=== PATIENT | male | born 1980 | race Two or more races ===

== ENCOUNTER 2017-03-01 11:15 | Day surgery (SDC) | payer OTHER ==
[~2017-03-01 11:15] MED LIST: Buffered Lidocaine 1% SYR 3ML* 3 ML/SYR SYRINGE INTRADERM ONE; Famotidine IV* 10 MG/ML 2 ML (20 mg) IV ONE
[2017-03-01] MEDS ORDERED: Midazolam* 1 MG/ML 5 ML VIAL (5 MG) ONE ×2 (11:22→13:00)
[2017-03-01] MEDS ORDERED: ceFAZolin 2 GM PREMIX(*) 2 GM/50 ML BAG IVPB ONE (11:32)
[2017-03-01] MEDS ORDERED: Famotidine IV* 10 MG/ML 2 ML (20 mg) ONE (11:32)
[2017-03-01] MEDS ORDERED: Ketorolac INJ* 30 MG/ML 1 ML VIAL ONE ×2 (11:43→13:00)
[2017-03-01] MEDS ORDERED: Ondansetron INJ* 2 MG/ML VIAL ONE ×2 (11:43→13:00)
[2017-03-01] MEDS ORDERED: Propofol* 10 MG/ML 20 ML BTL IV PUSH ONE ×2 (11:43→13:00)
[2017-03-01] MEDS ORDERED: Lidocaine 2% PF * 5 ML VIAL ONE ×2 (11:43→13:00)
[2017-03-01] MEDS ORDERED: Lidocaine 2% PF* 10 ML AMP ONE (12:29)
[2017-03-01] MEDS ORDERED: Bupivacaine 0.5% SDV PF* 30 ML VIAL ONE (12:29)
[2017-03-01] MEDS ORDERED: KETAMINE HCL* 50 MG/ML 10 ML VIAL ONE (13:00)
[2017-03-01] MEDS ORDERED: Dexamethasone IV* 4 MG/ML 1 ML (4 MG) ONE (13:00)
[2017-03-01] MEDS ORDERED: HYDROmorphone* 1 MG/ML 1 ML SYR ONE (13:42)
[2017-03-01] MEDS ORDERED: fentaNYL* 50 MCG/ML 2 ML VIAL (100 MCG VIAL) ONE ×2 (13:43→16:04)
[2017-03-01] MEDS ORDERED: Meperidine SYRINGE* 50 MG/ML ONE (13:43)
[2017-03-01] MEDS ORDERED: Acetaminophen IV 1GM/100ML * 100 ML ONE (14:08)
[2017-03-01] MEDS ORDERED: Acetaminophen IV 1GM/100ML * 100 ML IVPB ONE (14:09)
[2017-03-01] MEDS ORDERED: Ondansetron INJ* 2 MG/ML VIAL IV PRN (14:09)
[2017-03-01 16:29] VITALS: BP 128/93
--- NOTE | 2017-03-02 01:57 | OP ---
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 OPERATIVE PROCEDURE: Removal of bone spurs anterior aspect of the ankle joint. DESCRIPTION OF PROCEDURE: The patient was taken to the operating room where longitudinal incision was made dorsal medial ankle. We raised a full-thickness flap all the way over to the lateral fibula, thus allowing full visualization of the dorsal talus, tibia, and navicular. There was no significant spurring of the anterior aspect of the tibia, but there was over the dorsum and talus and the navicular. We also shelled out significant amount of synovitis and adherent capsule from inside the ankle joint, in other words it had followed the articular surface of the talus down and under the anterior lip of the tibia. The spurs were removed from the dorsal talus and navicular with a hook osteotome. This allowed complete decompression of the anterior joint space. The patient was able to dorsiflex about 7 to 10 degrees dorsally passively. After thorough irrigation, the capsule was repaired with 2-0 Vicryl, 2-0 subcutaneous tissue and rush for the skin and a compression dressing applied. [id number] #: [id number] MTDD
== END 2017-03-01 17:17 | disposition home or self-care (01) ==
LOC: OR 11:15
PROVIDERS: ATTEND Orthopaedic Surgery
DX: Q66.0 Congenital talipes equinovarus (principal); F17.210 Nicotine dependence, cigarettes, uncomplicated; B19.20 Unspecified viral hepatitis C without hepatic coma; M77.9 Enthesopathy, unspecified; M25.771 Osteophyte, right ankle
CPT/HCPCS: 88305; J0690; J1100; J1170; J1885; J2001; J2250; J2405; J2704; J3010

== ENCOUNTER → 2017-04-26 15:10 | Emergency (ER) | payer OTHER ==
[2017-04-26 16:32] VITALS: BP 0/0
== END | disposition left against medical advice (07) ==
LOC: ED 15:10
DX: R42 Dizziness and giddiness (principal); Z53.21 Procedure and treatment not carried out due to patient leaving prior to being seen by health care provider

== ENCOUNTER 2017-08-27 22:19 | Emergency (ER) | payer OTHER ==
[2017-08-28] MEDS ORDERED: Ketorolac INJ* 60 MG/2 ML VIAL IM ONE (01:01)
[2017-08-28 01:35] VITALS: BP 154/87
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
--- NOTE | 2017-08-28 07:45 | RAD ---
HISTORY: Trauma, pain on extension COMPARISONS: None VIEWS: 3, Frontal, lateral, and open-mouth odontoid views of the cervical spine. FINDINGS: The cervical spine is visualized from the skull base through C7-T1. ALIGNMENT: There is straightening of the normal cervical lordosis. VERTEBRAL BODIES: The odontoid process is intact. The atlantoaxial intervals are symmetric. JOINTS: There is mild diffuse facet hypertrophic change. INTERVERTEBRAL DISCS: There is mild diffuse loss of intervertebral disc height. SOFT TISSUE: The prevertebral soft tissues are normal. OTHER: The skull base is normal. The lung apices are clear. IMPRESSION: STRAIGHTENING OF THE CERVICAL LORDOSIS. MILD DEGENERATIVE CHANGES. NO ACUTE OSSEOUS INJURY TO THE CERVICAL SPINE.
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
== END 2017-08-28 01:32 | disposition home or self-care (01) ==
LOC: ED 22:19
DX: S02.2XXA Fracture of nasal bones, initial encounter for closed fracture (principal); W50.0XXA Accidental hit or strike by another person, initial encounter; Y93.9 Activity, unspecified; Y92.9 Unspecified place or not applicable; F17.210 Nicotine dependence, cigarettes, uncomplicated
CPT/HCPCS: 70160; 72040; 96372; 99282; J1885

== ENCOUNTER 2018-01-30 09:48 | Emergency (ER) | payer MEDICAID, OTHER ==
[2018-01-30] MEDS ORDERED: methylPREDNISolone 125 MG* 2 ML VIAL IV ONE (10:47)
[2018-01-30] MEDS ORDERED: Ketorolac INJ* 30 MG/ML 1 ML VIAL IV PUSH ONE (10:47)
[2018-01-30] MEDS ORDERED: Clindamycin 600 MG IVPREMIX(* 600 MG/50 ML SDV IV ONE (10:47)
--- NOTE | 2018-01-30 10:58 | ED ---
Throat Pain/Nasal Congestion - HPI Summary HPI Summary: Patient here with sudden onset swollen and sore throat this morning. He's tried saline gargles and hot tea which helped. He does experience dysphasia but is able to breathe and swallow. Subjective fever denies chills, nausea, vomiting, chest pain, shortness of breath, cough, sneezing, otalgia, rash, headache, neck stiffness. History of strep throat as a child denies history of Hinds as far as he knows. He also has a history of hepatitis C which is in remission after treatment through her infectious disease specialist. Currently uses Suboxone for opiate addiction as well as Wellbutrin, amitriptyline, gabapentin, and ibuprofen as needed for pain however he has not taken any yet this morning. Sick contact: Girlfriend with bronchitis. - History of Current Complaint Chief Complaint: EDThroatPain Time Seen by Provider: 01/30/18 10:23 Hx Obtained From: Patient, Family/Disability Counselor - female girlfriend - Allergies/Home Medications Allergies/Adverse Reactions: Allergies Allergy/AdvReac Type Severity Reaction Status Date / Time No Known Allergies Allergy Verified 01/30/18 09:53 Home Medications: Home Medications Amitriptyline TAB* [Elavil TAB*] 37.5 mg PO BEDTIME 01/30/18 [History Confirmed 01/30/18] Buprenorphine/Naloxone SL TAB* [Suboxone 8-2 mg SL TAB*] 1 tab.sl SL TID [History Confirmed 01/30/18] Gabapentin CAP(*) [Neurontin 300 CAP(*)] 300 mg PO BEDTIME 01/30/18 [History Confirmed 01/30/18] buPROPion SR TAB* [Wellbutrin SR TAB*] 100 mg PO BID 01/30/18 [History Confirmed 01/30/18] PMH/Surg Hx/FS Hx/Imm Hx Previously Healthy: Yes Endocrine/Hematology History: Denies: Autoimmune Disease Cardiovascular History: Denies: Hx Pacemaker/ICD GI History: Reports: Other GI Disorders - Hep C in remission Musculoskeletal History: Reports: Hx Arthritis Sensory History: Denies: Hx Contacts or Glasses, Hx Hearing Aid Opthamlomology History: Denies: Hx Contacts or Glasses Psychiatric History: Reports: Hx Anxiety - on medication for, Hx Depression - on medication for, Hx Substance Abuse - opiates, in remission - on suboxone - Surgical History Surgery Procedure, Year, and Place: hernia repair age 7. left knee - growth plate surgery Hx Anesthesia Reactions: No - Immunization History Date of Tetanus Vaccine: 2012 Date of Influenza Vaccine: 2014 Infectious Disease History: No Infectious Disease History: Denies: Traveled Outside the [place] in Last 30 Days - Family History Known Family History: Positive: Other - breast CA Negative: Seizure Disorder - Social History Lives: With Family - girlfriend Alcohol Use: None Hx Substance Use: Yes Substance Use Type: Reports: Other - opiates - on suboxone Hx Tobacco Use: Yes Smoking Status (MU): Current Every Day Smoker Type: Cigarettes Amount Used/How Often: 1/2 ppd x 13 years Length of Time of Smoking/Using Tobacco: 10 years Have You Smoked in the Last Year: Yes Review of Systems Positive: Fever - subjective. Negative: Chills Eyes: Negative Positive: Sore Throat. Negative: Ear Ache, Nasal Discharge Cardiovascular: Negative Respiratory: Negative Gastrointestinal: Negative Positive: no symptoms reported Musculoskeletal: Negative Skin: Negative Neurological: Negative Positive: Anxious All Other Systems Reviewed And Are Negative: Yes Physical Exam Triage Information Reviewed: Yes Vital Signs On Initial Exam: Initial Vitals Temp Pulse Resp BP Pulse Ox 98.4 F 106 16 155/101 98 01/30/18 09:48 01/30/18 09:48 01/30/18 09:48 01/30/18 09:48 01/30/18 09:48 Vital Signs Reviewed: Yes Appearance: Positive: Well-Appearing, No Pain Distress, Well-Nourished Skin: Positive: Warm, Skin Color Reflects Adequate Perfusion, Dry Head/Face: Positive: Normal Head/Face Inspection Eyes: Positive: Normal, EOMI, Conjunctiva Clear. Negative: Conjunctiva Inflammed, Discharge ENT: Positive: Hearing grossly normal, Pharyngeal erythema, Nasal congestion, TMs normal, Tonsillar swelling, Muffled voice - subtle; handling secretions, Uvula midline - edematous Neck: Positive: Supple, Nontender, Enlarged Nodes @ - posterior cc LN enlarged on Lt (pt reports this has been present for a while now). Negative: Nuchal Rigidity, Tenderness @ Respiratory/Lung Sounds: Positive: Clear to Auscultation, Breath Sounds Present. Negative: Stridor, Tracheal Deviation, Wheezes Cardiovascular: Positive: Normal, RRR Abdomen Description: Positive: Nontender, No Organomegaly, Soft Bowel Sounds: Positive: Present Musculoskeletal: Positive: Normal, Strength/ROM Intact Neurological: Positive: Normal, Sensory/Motor Intact, Alert, Oriented to Person Place, Time, CN Intact II-III Psychiatric: Positive: Normal - concerned but cooperative Diagnostics - Vital Signs Vital Signs Temp Pulse Resp BP Pulse Ox 01/30/18 09:48 98.4 F 106 16 155/101 98 - Laboratory Result Diagrams: 01/30/18 11:00 01/30/18 11:00 Lab Statement: Any lab studies that have been ordered have been reviewed, and results considered in the medical decision making process. Re-Evaluation - Re-Evaluation First Eval Change: Improved - pt reports swelling and pain improved - speaking easier, swallowing easier - overall feels better EENT Course/Dx - Course Course Of Treatment: Pt here w/ acute onset edema of tonsils, uvula and soft palate w/o known cause. Reports h/o dull MOTT a couple of days ago - gone now. Also admits to subjective fever - no fever here. Sx improved w/ IV toradol, solumedrol and clindamycin. Will continue same therapy and have pt f/u closely w / PCP or return to ED if sx worsen. - Diagnoses Provider Diagnoses: Acute pharyngitis - Provider Notifications Discussed Care Of Patient With: Bobo Lin Discharge - Sign-Out/Discharge Documenting (check all that apply): Discharge - Discharge Plan Condition: Stable Disposition: HOME Prescriptions: Clindamycin HCl 300 mg PO TID #30 capsule predniSONE TAB* [Deltasone TAB*] 40 mg PO DAILY #10 tab Patient Education Materials: Pharyngitis (ED) Referrals: Wilfredo Delong MD [Primary Care Provider] - Additional Instructions: Complete medications as directed Take ibuprofen with food as needed for pain/swelling You may continue salt water gargles as needed Follow-up with PCP tomorrow for recheck of throat swelling. Call in the morning to schedule appointment. You may also be seen at convenient care or return to ED *If symptoms worsen, return to ED - Billing Disposition and Condition Condition: STABLE Disposition: HOME
[2018-01-30 11:13] LABS: ABS Basophils 0 10^3/ul (0-0.2); ABS Eosinophils 0.1 10^3/ul (0-0.6); ABS Lymphocytes 2.1 10^3/ul (1.0-4.8); ABS Monocytes 0.4 10^3/ul (0-0.8); ABS Neutrophils 4.1 10^3/ul (1.5-7.7); ABS Nucleated RBC 0 10^3/ul; Eosinophil % 1.9 % (0-6); Hematocrit 37 % (42-52); Hemoglobin 12.7 g/dl (14.0-18.0); Lymphocyte % 30.3 % (25-47); Mean Corpuscular HGB Conc 35 g/dl (31-36); Mean Corpuscular Hemoglobin 30 pg (27-31); Mean Corpuscular Volume 86 fL (80-94); Mean Platelet Volume 9.2 um3 (7.4-10.4); Nucleated Red Blood Cells % 0.1; Platelet Count 144 10^3/ul (150-450); Red Blood Count 4.26 10^6/ul (4.0-5.4); Red Cell Distribution Width 14 % (10.5-15); White Blood Count 6.8 10^3/ul (3.5-10.8)
[2018-01-30 11:29] LABS: EGFR Non-African American 121.5 (>60)
[2018-01-30 12:52] VITALS: BP 157/102
== END 2018-01-30 12:51 | disposition home or self-care (01) ==
LOC: ED 09:48
DX: J02.9 Acute pharyngitis, unspecified (principal); F17.210 Nicotine dependence, cigarettes, uncomplicated
CPT/HCPCS: 36415; 80053; 83605; 85025; 86140; 86308; 87651; 96374; 96375; 99282; J1885; J2930

== ENCOUNTER 2019-01-18 18:30 | Emergency (ER) | payer OTHER ==
[2019-01-18 18:41] VITALS: BP 125/86
--- NOTE | 2019-01-18 20:05 | UC ---
Ear Complaint HPI - HPI Summary HPI Summary: 38 y/o male presents to the urgent care c/o left ear w/ a piece of cotton s/p cleaning his ear w/ a Q-tip this morning. Pt reports ear pressure sensation and decrease hearing. Pt denies fever, ear drainage, dizziness,fever, SOB, chest pain, MOTT, abdominal pain, N/V/d. - History of Current Complaint Chief Complaint: UCEar Stated Complaint: L EAR COMPLAINT Time Seen by Provider: 01/18/19 19:26 Hx Obtained From: Patient Onset/Duration: Sudden Onset, Lasting Hours - 10 hrs Severity Initially: Mild Severity Currently: Mild Pain Intensity: 0 Pain Scale Used: 0-10 Numeric Alleviating Factors: Nothing Associated Signs/Symptoms: Positive: Hearing Loss - and pressure - Allergies/Home Medications Allergies/Adverse Reactions: Allergies Allergy/AdvReac Type Severity Reaction Status Date / Time No Known Allergies Allergy Verified 01/18/19 18:41 PMH/Surg Hx/FS Hx/Imm Hx Previously Healthy: Yes - Pt denies PMHX - Surgical History Surgical History: Yes Surgery Procedure, Year, and Place: hernia repair age 7. left knee - growth plate surgery - Family History Known Family History: Positive: None - Pt deneis FMHX, Other - breast CA Negative: Seizure Disorder - Social History Occupation: Employed Full-time Lives: With Family Alcohol Use: None Substance Use Type: Marijuana Substance Use Comment - Amount & Last Used: weekly Smoking Status (MU): Heavy Every Day Tobacco Smoker Type: Cigarettes Amount Used/How Often: 1/2 ppd x 13 years Length of Time of Smoking/Using Tobacco: 10 years Have You Smoked in the Last Year: Yes - Immunization History Most Recent Influenza Vaccination: unk Most Recent Tetanus Shot: states he has had one within 5 years Most Recent Pneumonia Vaccination: Unkown Review of Systems All Other Systems Reviewed And Are Negative: Yes Constitutional: Positive: Negative Skin: Positive: Negative Eyes: Positive: Negative ENT: Positive: Ear Ache - left ear foreing body (piece of cotton from Q-tip) mild pressure Respiratory: Positive: Negative Cardiovascular: Positive: Negative Gastrointestinal: Positive: Negative Genitourinary: Positive: Negative Motor: Positive: Negative Neurovascular: Positive: Negative Musculoskeletal: Positive: Negative Neurological: Positive: Negative Psychological: Positive: Negative Is Patient Immunocompromised?: No Physical Exam - Summary Physical Exam Summary: Vital signs: reviewed General: well developed, well nourished male sitting in the examining table w/o any apparent distress Skin: [place], warm and dry, no evidence of atopic dermatitis, psoriasis, seborrhea. HEENT: -Head: atraumatic, non tender; no scalp dermatitis. -Eyes: sclera and conjunctiva clear, PERRLA, EOMI -Ears: no pre- or postauricular lymphadenopathy or erythema; LF external ear canal with discrete piece of cotton, LF TM: WNL, RT external ear canal clear and RT TM WNL. TMs normal w/out bulging or retraction. Good light reflex. No fluid level, vesicles, or bullae. No perforation. -Nose/Face: erythematous and edematous nasal mucosa with clear rhinorrhea, no frontal or maxillary sinus tender to palpation. -Mouth/Throat: Mucous membrane moist, posterior pharynx clear, no erythema or exudates. Neck: supple, FROM, nontender, no lymphadenopathy, no meningismus. Chest: Clear to auscultation, normal breath sounds Abd: soft, Bowel sounds active, Nontender. Back: no spinal or CVAT Neuro: A&O x4, GCS 15, no focal neuro deficits, normal behavior for age. Triage Information Reviewed: Yes Vital Signs: Initial Vital Signs Temp 98.2 F 01/18/19 18:37 Pulse 64 01/18/19 18:37 Resp 16 01/18/19 18:37 BP 125/86 01/18/19 18:37 Pulse Ox 99 01/18/19 18:37 Ear Complaint Course/Dx - Course Course Of Treatment: 38 y/o male presents to the urgent care c/o left ear w/ a piece of cotton s/p cleaning his ear w/ a Q-tip this morning. Pt reports ear pressure sensation and decrease hearing. Pt denies fever, ear drainage, dizziness,fever, SOB, chest pain, MOTT, abdominal pain, N/V/d. Hx obtained. Pt w/ LF external ear canal with discrete piece of cotton. LF ear irrigation performed by nurse and piece completely flushed out. Pt tolerated well procedure and felt better. External ear canal clear, no signs of infection. Pt advised if he develops pear pain or fever to return to the urgent care or f/u w/ PCP for further treatment. Pt understood and agreed w/ plan of care. - Differential Dx/Diagnosis Differential Diagnosis/HQI/PQRI: Cerumen Impaction, Foreign Body, Otitis Externa , Otitis Media, Perforated TM Provider Diagnosis: Foreign body of ear, left Discharge - Sign-Out/Discharge Documenting (check all that apply): Patient Departure - d/C home All imaging exams completed and their final reports reviewed: No Studies - Discharge Plan Condition: Stable Disposition: HOME Patient Education Materials: Ear Foreign Body (ED) Referrals: Fay Abraham MD [Primary Care Provider] - If Needed Additional Instructions: 1- Your external ear canal is completely clear. No signs of infection. If you develop ear pain or fever please f/u w/ your PCP or return to the urgent care for further evaluation and treatment - Billing Disposition and Condition Condition: STABLE Disposition: Home
== END 2019-01-18 20:25 | disposition home or self-care (01) ==
LOC: UCEAST 18:30
DX: T16.2XXA Foreign body in left ear, initial encounter (principal); X58.XXXA Exposure to other specified factors, initial encounter; Y92.9 Unspecified place or not applicable; F17.210 Nicotine dependence, cigarettes, uncomplicated
CPT/HCPCS: 99212; G0463

== ENCOUNTER 2019-04-12 20:03 | Emergency (ER) | payer OTHER ==
[2019-04-12 20:16] VITALS: BP 116/71
[2019-04-12] MEDS ORDERED: Tetan/Diph/Pertus SYR(Tdap)* 0.5 ML SYR(BOOSTRIX) use SYR IM ONE (20:24)
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
== END 2019-04-12 20:59 | disposition home or self-care (01) ==
LOC: UCEAST 20:03
DX: S61.210A Laceration without foreign body of right index finger without damage to nail, initial encounter (principal); W26.0XXA Contact with knife, initial encounter; Y92.9 Unspecified place or not applicable; B19.20 Unspecified viral hepatitis C without hepatic coma; F17.210 Nicotine dependence, cigarettes, uncomplicated
CPT/HCPCS: 12001; 90471; 90715; 99212; G0463